=== PATIENT | male | born 1990 | race African-American/Black ===

== ENCOUNTER 2016-10-19 00:06 | Emergency (ER) | payer MEDICAID ==
[~2016-10-19] VITALS: Ht 190.5 cm; Wt 157.0 kg
[2016-10-19] MEDS ORDERED: IBUPROFEN 800MG TABLET PO ONE (02:45)
[2016-10-19 06:09] VITALS: BP 134/58
== END 2016-10-19 06:40 | disposition home or self-care (01) ==
LOC: ER 00:06
DX: S13.4XXA Sprain of ligaments of cervical spine, initial encounter (principal); S39.012A Strain of muscle, fascia and tendon of lower back, initial encounter; V49.59XA Passenger injured in collision with other motor vehicles in traffic accident, initial encounter; Y93.89 Activity, other specified; Y92.410 Unspecified street and highway as the place of occurrence of the external cause
CPT/HCPCS: 72100; 72125; 99284

== ENCOUNTER 2016-11-08 17:19 | Emergency (ER) | payer MEDICAID ==
[~2016-11-08] VITALS: Ht 190.5 cm; Wt 160.0 kg
[2016-11-08] MEDS ORDERED: IPRATROPIUM BROMIDE (0.02%) 0.5MG/2.5ML NEB HHN ONE (21:00)
[2016-11-08] MEDS ORDERED: ALBUTEROL (0.083%) 2.5MG/3ML NEB HHN ONE (21:00)
[2016-11-08] MEDS ORDERED: KETOROLAC 60MG/2ML VIAL IM ONE (21:00)
[2016-11-08 22:10] VITALS: BP 136/89
== END 2016-11-08 22:11 | disposition home or self-care (01) ==
LOC: ER 20:17
DX: J06.9 Acute upper respiratory infection, unspecified (principal); R03.0 Elevated blood-pressure reading, without diagnosis of hypertension
CPT/HCPCS: 94640; 96372; 99283; J1885; J7611